=== PATIENT | female | born 1980 | race Hispanic/Latino ===

== ENCOUNTER 2022-09-18 03:09 | Emergency (ER) | payer BC, MEDICAID ==
[~2022-09-18] VITALS: Ht 152.4 cm; Wt 66.7 kg
[2022-09-18 03:11] VITALS: BP 115/77
[2022-09-18] MEDS ORDERED: ACETAMINOPHEN 500 MG TABLET PO ONE (03:30)
[2022-09-18 03:45] LABS: BASOPHILS % (AUTO) 0.1 % (0.0-5.0); HEMATOCRIT 33.4 % (36-48); LYMPHOCYTES % (AUTO) 7.4 % (21.0-51.0); MEAN CORPUSCULAR HEMOGLOBIN 25.7 pg (27.0-33.0); MEAN CORPUSCULAR HGB CONC 32.3 g/dL (32.0-36.0); MEAN CORPUSCULAR VOLUME 79.3 fL (79-99); MONOCYTES % (AUTO) 4.8 % (3.0-13.0); NEUTROPHILS % (AUTO) 87.4 % (40.0-77.0); PLATELET COUNT (AUTO) 237 K/uL (130-400); RED BLOOD CELL COUNT(AUTO) 4.21 MIL/uL (4.00-5.50); RED CELL DISTRIBUTION WIDTH 14.8 % (11.0-15.5); WHITE BLOOD COUNT (AUTO) 11.7 K/uL (4.8-10.8)
[2022-09-18] MEDS ORDERED: METOCLOPRAMIDE 10 MG/2 ML VIAL ONE (03:45)
[2022-09-18] MEDS ORDERED: DiphenhydrAMINE HCL 50 MG/ML VIAL ONE (03:45)
[2022-09-18] MEDS ORDERED: KETOROLAC 30MG VIAL (30MG/ML) ONE (03:45)
[2022-09-18 03:54] LABS: APPEARANCE,URINE CLOUDY (CLEAR); BILIRUBIN,URINE NEGATIVE (NEGATIVE); COLOR,URINE LIGHT-YELLOW (YELLOW); GLUCOSE, URINE (UA) NEGATIVE (NEGATIVE); KETONES,URINE NEGATIVE (NEGATIVE); LEUKOCYTE ESTERASE ,URINE 500 Leu/uL (NEGATIVE); NITRATE,URINE NEGATIVE (NEGATIVE); OCCULT BLOOD,URINE MODERATE (NEGATIVE); PROTEIN,URINE 10 mg/dL (NEGATIVE); UROBILINOGEN,URINE 0.2 mg/dL (0.2-1.0)
[2022-09-18 03:56] LABS: HCG,QUALITATIVE URINE NEGATIVE (NEGATIVE)
[2022-09-18 03:57] LABS: CARBON DIOXIDE 25 mmol/L (21-32); CHLORIDE 99 mmol/L (101-111); CREATININE 0.7 mg/dL (0.5-1.5); GLOMERULAR FILTR. RATE CALC 110 mL/min (>90); GLUCOSE,RANDOM 110 mg/dL (70-105); POTASSIUM 3.7 mmol/L (3.5-5.1); SODIUM SERUM 131 mmol/L (136-145); UREA NITROGEN, BLOOD 9 mg/dL (7-18)
[2022-09-18] MEDS ORDERED: DiphenhydrAMINE HCL 50 MG/ML VIAL IV ONE (04:00)
[2022-09-18] MEDS ORDERED: 0.9%NACL 1000ML 2,000 ML IV ONE (04:00)
[2022-09-18] MEDS ORDERED: KETOROLAC 30MG VIAL (30MG/ML) IVP ONE (04:00)
[2022-09-18] MEDS ORDERED: METOCLOPRAMIDE 10 MG/2 ML VIAL IVP ONE (04:00)
[2022-09-18 04:02] LABS: ALANINE AMINOTRANSFERASE 14 U/L (12-78); ALBUMIN 3.6 g/dL (3.5-5.0); ASPARTATE AMINOTRANSFERASE 12 U/L (10-37); TOTAL PROTEIN, SERUM 7.3 g/dL (6.0-8.3)
[2022-09-18 04:13] LABS: BACTERIA,URINE RARE /HPF (None Seen); MUCUS,URINE RARE LPF (None Seen); SQUAMOUS EPITHELIAL CELL,UR MANY /HPF (0-2)
[2022-09-18 04:21] LABS: LIPASE < 50 U/L (114-286)
[2022-09-18] MEDS ORDERED: DIPH1TAB PO (05:15)
[2022-09-18] MEDS ORDERED: ONDA-104 PO (05:15)
[2022-09-18] MEDS ORDERED: IBUP-1493 PO (05:15)
== END 2022-09-18 05:37 | disposition home or self-care (01) ==
LOC: EDH 03:09
DX: B34.9 Viral infection, unspecified (principal); G43.909 Migraine, unspecified, not intractable, without status migrainosus; R19.7 Diarrhea, unspecified; E03.9 Hypothyroidism, unspecified; Z20.822 Contact with and (suspected) exposure to COVID-19
CPT/HCPCS: 99284; 96374; 96375; 87635; 96361; 80053; 83690; 85025; 87088; 87804 ×2; 81001; 81025; 36415; C9803; J1200; J7030; J1885; J2765

== ENCOUNTER 2022-09-20 02:39 | Observation (INO) | payer BC ==
[2022-09-20] VITALS (20 sets, daily range): BP systolic 81–126; BP diastolic 25–87
[~2022-09-20] VITALS: Ht 152.4 cm; Wt 66.2 kg
[~2022-09-20 02:39] MED LIST: DIPH1TAB PO; IBUP-1493 PO; ONDA-104 PO
[2022-09-20] MEDS ORDERED: ONDANSETRON 4MG INJ IVP ONE (03:30)
[2022-09-20] MEDS ORDERED: LACTATED RINGERS 1000ML 1,000 ML IV ONE (03:30)
[2022-09-20] MEDS ORDERED: MORPHINE 2 MG SYG IVP ONE (03:30)
[2022-09-20] MEDS ORDERED: KETOROLAC 30MG VIAL (30MG/ML) IVP ONE (03:30)
[2022-09-20 03:34] LABS: BASOPHILS % (AUTO) 0.3 % (0.0-5.0); EOSINOPHILS % (AUTO) 0.5 % (0.0-8.0); HEMATOCRIT 33.6 % (36-48); LYMPHOCYTES % (AUTO) 10.3 % (21.0-51.0); MEAN CORPUSCULAR HEMOGLOBIN 25.3 pg (27.0-33.0); MEAN CORPUSCULAR HGB CONC 32.4 g/dL (32.0-36.0); MONOCYTES % (AUTO) 6.2 % (3.0-13.0); NEUTROPHILS % (AUTO) 82.2 % (40.0-77.0); PLATELET COUNT (AUTO) 215 K/uL (130-400); RED BLOOD CELL COUNT(AUTO) 4.31 MIL/uL (4.00-5.50); RED CELL DISTRIBUTION WIDTH 14.6 % (11.0-15.5); WHITE BLOOD COUNT (AUTO) 6.6 K/uL (4.8-10.8)
[2022-09-20] MEDS ORDERED: IOHEXOL-350 75 ML VIAL IV ONE (03:36)
[2022-09-20 03:44] LABS: INR 0.99 (0.85-1.15); PROTHROMBIN TIME 10.8 SEC (9.6-11.6)
[2022-09-20 03:45] LABS: PARTIAL THROMBOPLASTIN TIME 29.6 SEC (26.3-35.5)
[2022-09-20 03:47] LABS: CARBON DIOXIDE 24 mmol/L (21-32); CHLORIDE 98 mmol/L (101-111); CREATININE 0.6 mg/dL (0.5-1.5); GLOMERULAR FILTR. RATE CALC 114 mL/min (>90); GLUCOSE,RANDOM 89 mg/dL (70-105); POTASSIUM 3.5 mmol/L (3.5-5.1); SODIUM SERUM 133 mmol/L (136-145); UREA NITROGEN, BLOOD 7 mg/dL (7-18)
[2022-09-20 03:57] LABS: ALANINE AMINOTRANSFERASE 15 U/L (12-78); ALBUMIN 3.4 g/dL (3.5-5.0); AMYLASE 25 U/L (25-115); ASPARTATE AMINOTRANSFERASE 16 U/L (10-37); CREATINE KINASE, TOTAL 90 U/L (21-232); HCG,QUANTITATIVE 0 mIU/mL (0-5); TOTAL PROTEIN, SERUM 7.3 g/dL (6.0-8.3)
[2022-09-20 03:59] LABS: LIPASE < 50 U/L (114-286)
[2022-09-20 04:02] LABS: INFLUENZA TYPE A NEGATIVE FOR TYPE A (NEG); INFLUENZA TYPE B NEGATIVE FOR TYPE B (NEG)
[2022-09-20 04:03] LABS: APPEARANCE,URINE CLOUDY (CLEAR); BILIRUBIN,URINE NEGATIVE (NEGATIVE); COLOR,URINE LIGHT-ORANGE (YELLOW); GLUCOSE, URINE (UA) NEGATIVE (NEGATIVE); KETONES,URINE 150 mg/dL (NEGATIVE); LEUKOCYTE ESTERASE ,URINE 75 Leu/uL (NEGATIVE); NITRATE,URINE NEGATIVE (NEGATIVE); OCCULT BLOOD,URINE LARGE (NEGATIVE); PROTEIN,URINE 50 mg/dL (NEGATIVE); UROBILINOGEN,URINE 0.2 mg/dL (0.2-1.0)
[2022-09-20 04:08] LABS: MUCUS,URINE MANY LPF (None Seen); RBC,URINE TNTC /HPF (0-1); SQUAMOUS EPITHELIAL CELL,UR RARE /HPF (0-2)
[2022-09-20] MEDS ORDERED: ZOSYN 3.375GM+NS 50ML 50 ML IVPB STA (05:22)
[2022-09-20] MEDS ORDERED: NACL IV ONE (05:30)
[2022-09-20] MEDS ORDERED: ACETAMINOPHEN 500 MG TABLET PO ONE (05:30)
[2022-09-20] MEDS ORDERED: 0.9%NACL 1000ML 2,000 ML IV ONE (06:00)
[2022-09-20] MEDS ORDERED: HYDROMORPHONE 0.5 MG SYG (0.5MG/0.5ML) ONE (06:17)
[2022-09-20] MEDS: HYDROMORPHONE 0.5 MG SYG (0.5MG/0.5ML) IVP PRN ×3 (06:27→14:02)
[2022-09-20] MEDS ORDERED: PANTOPRAZOLE 40 MG/VIAL IVP SCH (09:00)
[2022-09-20] MEDS: 0.9%NACL 1000ML 1,000 ML IV SCH ×2 (09:46→12:25)
[2022-09-20] MEDS ORDERED: ONDANSETRON 4MG INJ IVP PRN (12:30)
[2022-09-20] MEDS ORDERED: 0.9%NACL 1000ML 1,000 ML IV SCH ×2 (12:30→15:15)
[2022-09-20] MEDS: ZOSYN 3.375GM +NS 50ML IVPB SCH ×2 (13:43→22:11)
[2022-09-20] MEDS ORDERED: 0.9%NACL 50ML IV SCH (14:00)
[2022-09-20] MEDS ORDERED: SUCCINYLCHOLINE CHLORIDE 20 MG/ML 10 ML VIAL ONE (15:42)
[2022-09-20] MEDS ORDERED: LIDOCAINE PF 100MG/5ML (2%) SYRINGE 5ML ONE (15:42)
[2022-09-20] MEDS ORDERED: DEXAMETHASONE SOD PHOSPHATE 10MG/ML 1ML VIAL ONE (15:43)
[2022-09-20] MEDS ORDERED: NEOSTIGMINE 5MG/5ML SYR IV ONE (15:44)
[2022-09-20] MEDS ORDERED: PROPOFOL 10 MG/ML 20ML VIAL IV ONE (15:44)
[2022-09-20] MEDS ORDERED: GLYCOPYRROLATE 1 MG/5 ML SYRINGE ONE (15:44)
[2022-09-20] MEDS ORDERED: ROCURONIUM 10MG/1ML SYR 10 MG/ML ML ONE (15:44)
[2022-09-20] MEDS ORDERED: MIDAZOLAM HCL 1 MG/ML 2ML VIAL ONE (15:44)
[2022-09-20] MEDS ORDERED: ONDANSETRON 4MG INJ ONE (15:44)
[2022-09-20] MEDS ORDERED: FENTANYL CITRATE PF 50 MCG/1 ML 2ML VIAL ONE ×2 (15:45→15:47)
[2022-09-20] MEDS ORDERED: IOHEXOL-350 50ML VIAL IV ONE (16:43)
[2022-09-20] MEDS ORDERED: BUPIVACAINE/PF 0.5% 30ML VIAL ONE (17:23)
[2022-09-20] MEDS ORDERED: PHENYLEPHRINE HCL 10 MG/ML 1ML VIAL IV ONE (17:49)
[2022-09-20] MEDS ORDERED: BUPIVACAINE/PF 0.5% 30ML VIAL IV ONE (17:53)
[2022-09-20] MEDS ORDERED: TRAMADOL HCL 50 MG TABLET PO PRN (18:30)
[2022-09-20] MEDS ORDERED: DOCUSATE SODIUM 100 MG CAP PO SCH (21:00)
[2022-09-21 02:17] VITALS: BP 113/53
[2022-09-21 05:15] LABS: BASOPHILS % (AUTO) 0.1 % (0.0-5.0); HEMATOCRIT 28.9 % (36-48); LYMPHOCYTES % (AUTO) 7.7 % (21.0-51.0); MEAN CORPUSCULAR HEMOGLOBIN 25.3 pg (27.0-33.0); MEAN CORPUSCULAR HGB CONC 32.2 g/dL (32.0-36.0); MEAN CORPUSCULAR VOLUME 78.5 fL (79-99); NEUTROPHILS % (AUTO) 88.5 % (40.0-77.0); PLATELET COUNT (AUTO) 209 K/uL (130-400); RED BLOOD CELL COUNT(AUTO) 3.68 MIL/uL (4.00-5.50); RED CELL DISTRIBUTION WIDTH 14.9 % (11.0-15.5); WHITE BLOOD COUNT (AUTO) 7.6 K/uL (4.8-10.8)
[2022-09-21 05:25] LABS: CARBON DIOXIDE 26 mmol/L (21-32); CHLORIDE 104 mmol/L (101-111); CREATININE 0.5 mg/dL (0.5-1.5); GLOMERULAR FILTR. RATE CALC 119 mL/min (>90); GLUCOSE,RANDOM 111 mg/dL (70-105); POTASSIUM 4.3 mmol/L (3.5-5.1); SODIUM SERUM 139 mmol/L (136-145); UREA NITROGEN, BLOOD 4 mg/dL (7-18)
[2022-09-21 05:29] LABS: ALANINE AMINOTRANSFERASE 22 U/L (12-78); ALBUMIN 2.7 g/dL (3.5-5.0); ASPARTATE AMINOTRANSFERASE 21 U/L (10-37); TOTAL PROTEIN, SERUM 6.3 g/dL (6.0-8.3)
[2022-09-21 05:39] LABS: LIPASE < 50 U/L (114-286)
[2022-09-21] MEDS: ZOSYN 3.375GM +NS 50ML IVPB SCH (06:10)
[2022-09-21] MEDS: 0.9%NACL 1000ML 1,000 ML IV SCH (06:43)
[2022-09-21 07:23] VITALS: BP 94/52
[2022-09-21 12:30] VITALS: BP 96/57
[2022-09-21] MEDS ORDERED: TRAM50TA4 PO (12:40)
[2022-09-21] MEDS ORDERED: DOCU-116 PO (12:41)
== END 2022-09-21 13:20 | disposition home or self-care (01) ==
LOC: EDH 02:39 → EDHIP 05:56 → INTOOBSV 05:56 → WSH 10:05
PROVIDERS: ADMIT Internal Medicine; ATTEND Internal Medicine
DX: A41.9 Sepsis, unspecified organism (principal); Z20.822 Contact with and (suspected) exposure to COVID-19; K80.10 Calculus of gallbladder with chronic cholecystitis without obstruction; E03.9 Hypothyroidism, unspecified; M32.9 Systemic lupus erythematosus, unspecified; R10.2 Pelvic and perineal pain; G43.909 Migraine, unspecified, not intractable, without status migrainosus; Z79.899 Other long term (current) drug therapy; Z98.890 Other specified postprocedural states
CPT/HCPCS: 47563; 96376; 96361 ×4; 96365; 96366 ×4; 96375; 99285; 82150; 82550; 84484; 80053 ×2; 84702; 83690 ×2; 85025 ×2; 85610; 85730; 87040 ×2; 87088; 87804 ×2; 83605; 81001; 36415 ×2; 87635; 74300; 74177; 76705; J7030 ×4; J7120 ×2; C1758; C9803; J7040; J3010 ×2; J3490 ×3; J1100; J2710; J0330; J2001; J2250; J2704; J2405 ×2; J1885; J2543 ×4; C9113; J2370; Q9967 ×2; J1170 ×2; A4649 ×2; A4930 ×2; G0378 ×4